=== PATIENT | male | born 1980 ===

== ENCOUNTER 2016-12-31 12:48 | Emergency (ER) | payer OTHER ==
[2016-12-31 13:02] VITALS: BP 140/88; PULSE 80; RESP 20; TEMP 97.2; O2SAT 98
--- NOTE | 2016-12-31 13:10 | ED PDOC ---
Lower Extremity Pain/Injury Time Seen by Provider: 12/31/16 13:03 Chief Complaint (Nursing): Lower Extremity Problem/Injury Chief Complaint (Provider): right ankle pain History Per: Patient History/Exam Limitations: no limitations Onset/Duration Of Symptoms: Days (x 1) Additional Complaint(s): Lawrence Batista is a 36 year old male, with no previous medical history, who presents to the ED with complaints of right foot and ankle pain secondary to twisting it while throwing an object into a dumpster while at work yesterday. Patient denies any numbness or tingling to affected area. He reports taking a Motrin prior to arrival which provided relief. PMD: none provided Past Medical History Reviewed: Historical Data, Nursing Documentation, Vital Signs Vital Signs: Last Vital Signs Temp 97.2 F L 12/31/16 12:59 Pulse 80 12/31/16 12:59 Resp 20 12/31/16 12:59 BP 140/88 12/31/16 12:59 Pulse Ox 98 12/31/16 12:59 - Medical History PMH: No Chronic Diseases - Surgical History Surgical History: No Surg Hx - Family History Family History: States: No Known Family Hx - Living Arrangements Living Arrangements: With Family - Social History Current smoker - smoking cessation education provided: No Alcohol: None Drugs: Denies - Allergies Allergies/Adverse Reactions: Allergies Allergy/AdvReac Type Severity Reaction Status Date / Time No Known Allergies Allergy Verified 12/31/16 13:12 Wells Criteria for PE - Wells Criteria for Pulmonary Embolism Clinical Signs and Symptoms of DVT: No P.E is #1 Diagnosis, or Equally Likely: No Heart Rate >100: No Immobilization at least 3 days;Surgery previous 4 weeks: No Previous, objectively diagnosed PE or DVT: No Hemoptysis: No Malignancy w/treatment within 6 months, or palliative: No Total Score: 0 Review of Systems ROS Statement: Except As Marked, All Systems Reviewed And Found Negative Musculoskeletal: Positive for: Other (right foot and ankle pain) Neurological: Negative for: Numbness Physical Exam - Reviewed Nursing Documentation Reviewed: Yes Vital Signs Reviewed: Yes - Physical Exam Appears: Positive for: Well, Non-toxic, No Acute Distress Respiratory: Negative for: Respiratory Distress Extremity: Positive for: Normal ROM, Tenderness (dorsolateral aspect of the right foot and right lateral malleolus ), Capillary Refill (< 2 seconds ), Swelling (dorsolateral aspect of the right foot and right lateral malleolus ), Other (normal distal sensation ). Negative for: Deformity Neurologic/Psych: Positive for: Alert, Oriented - ECG O2 Sat by Pulse Oximetry: 98 (RA) Pulse Ox Interpretation: Normal - Other Rad right foot and ankle x-ray X-Ray: Interpreted by Me, Viewed By Me X-Ray Interpretation: no fx, no dis Medical Decision Making Medical Decision Making: Initial Impression: Right foot and ankle injury Initial Plan: * x-ray right ankle * x-ray right foot * reevaluation Patient aware of x-ray results. Crutches declined. Advised ice, elevation and NSAID's for pain. Patient was referred to podiatry clinic for follow up. Scribe Attestation: Documented by Sonia Watts, acting as a scribe for Jeny Jimenes PA-C. Provider Scribe Attestation: All medical record entries made by the Scribe were at my direction and personally dictated by me. I have reviewed the chart and agree that the record accurately reflects my personal performance of the history, physical exam, medical decision making, and the department course for this patient. I have also personally directed, reviewed, and agree with the discharge instructions and disposition. Procedures - Splinting Location: right foot and ankle Pre-Made Type: ave wrap, aircast, ortho shoe Pre-Proc Neuro Vasc Exam: normal Post-Proc Neuro Vasc Exam: normal Disposition - Clinical Impression Clinical Impression: Foot sprain, Ankle sprain and strain - Patient ED Disposition Is Patient to be Admitted: No Counseled Patient/Family Regarding: Studies Performed, Diagnosis, Need For Followup - Disposition Referrals: Podiatry Clinic [Outside] Disposition Time: 14:26 Condition: STABLE Additional Instructions: Ice, rest and elevate affected area. Motrin for pain as needed. Follow up in 2 -3 days with meteorology faculty member. Instructions: Foot Sprain (ED), Ankle Sprain (ED), Ankle Stirrup Splint (ED)
--- NOTE | 2016-12-31 14:51 | RAD ---
PROCEDURE: Right Foot Radiographs. HISTORY: trauma COMPARISON: None. FINDINGS: BONES: Normal. No fracture. JOINTS: Normal. SOFT TISSUES: Normal. OTHER FINDINGS: None. IMPRESSION: Normal right foot radiographs.
--- NOTE | 2016-12-31 14:52 | RAD ---
PROCEDURE: Right ankle Radiographs. HISTORY: trauma COMPARISON: None. FINDINGS: BONES: Normal. No fracture. JOINTS: Normal. No dislocation. SOFT TISSUES: Normal. OTHER FINDINGS: None. IMPRESSION: Normal right ankle radiographs.
== END 2016-12-31 14:45 | disposition home or self-care (01) ==
LOC: H.ER 12:48
DX: S93.401A Sprain of unspecified ligament of right ankle, initial encounter (principal); X50.9XXA Other and unspecified overexertion or strenuous movements or postures, initial encounter; Y99.0 Civilian activity done for income or pay